=== PATIENT | male | born 1970 | race Caucasian/White ===

== ENCOUNTER → 2016-05-17 | Outpatient (CLI) | payer BC ==
[~2016-05-17] MED LIST: ALL DAY ALLERGY10 M3 PO; COATED ASPIRIN325 M1 PO; FLEXERIL PO; NAPROXEN PO; PRAVASTATIN SOD40 MG PO
--- NOTE | ~2016-05-17 | EKG ---
PATIENT: YENI KIRKLAND UNIT #: [id number] Ventricular Rate: 79 BPM Atrial Rate: 79 BPM P-R Interval: 162 ms QRS Duration: 72 ms Q-T Interval: 376 ms QTC Calculation(Bezet): 431 ms P [place]: 50 degrees Calculated R [place]: 9 degrees Calculated T [place]: 9 degrees Diagnosis Line: Normal sinus rhythm Diagnosis Line: Baseline wander Normal ECG Diagnosis Line: When compared with ECG of 21-JAN-2016 11:15, Diagnosis Line: Premature ventricular complexes are no longer Diagnosis Line: Present Diagnosis Line: Confirmed by PACO ARROYO MD ([id number]) on 05/18/2016 Diagnosis Line: 6:18:08 PM INTERPRETING MD: DINA MARCUS
[2016-05-17 10:16] LABS: BASOPHIL# 0.1 X10e3 (0-0.3); BASOPHIL% 0.9 % (0-2.5); EOSINOPHIL# 0.4 X10e3 (0-0.7); EOSINOPHIL% 6.5 % (0.0-7.0); HEMATOCRIT 46.3 % (38.0-50.0); HEMOGLOBIN 15.8 gm/dL (13.0-16.0); LYMPHOCYTE% 33.4 % (17.0-45.0); MEAN CELL VOLUME 86.6 FL (83-96); MEAN CORPUSCULAR HEMOGLOBIN 29.5 PG (28-34); MEAN CORPUSCULAR HGB CONC 34.1 g/dL (30-36); MEAN PLATELET VOLUME 7.2 FL (6.5-11.5); MONOCYTE# 0.7 X10e3 (0-1.0); MONOCYTE% 11.2 % (3.0-12.0); NEUTROPHIL# 2.9 X10e3 (1.5-7.1); PLATELET COUNT 196 X10e3 (140-420); RED BLOOD COUNT 5.35 X10e (3.90-5.60); RED CELL DISTRIBUTION WIDTH 13.1 % (11.0-15.5); WHITE BLOOD COUNT 5.9 X10e3 (4.0-10.5)
[2016-05-17 10:19] LABS: DIFF IND NO
[2016-05-17 10:50] LABS: BLOOD UREA NITROGEN 13 mg/dL (9-23); CALCIUM SERUM 9.4 mg/dL (8.4-10.2); CARBON DIOXIDE 23 mmol/L (22-31); CHLORIDE 106 mmol/L (100-111); GLOM FILT RATE Estimated ABOVE60 mL/min (>60); GLUCOSE FASTING 95 mg/dL (70-110); POTASSIUM 4.1 mmol/L (3.5-5.1); SODIUM 138 mmol/L (135-145)
[2016-05-17 10:55] LABS: THYROID STIMULATING HORMONE 1.2 uIU/ml (0.34-5.60)
[2016-05-17 11:01] LABS: FREE THYROXIN (T4) 0.85 ng/dL (0.58-1.64)
[2016-05-24 16:37] LABS: CALCIUM (PTHINTACT) 9.4 mg/dL (8.6-10.3)
== END | disposition home or self-care (01) ==
LOC: CLAB 08:59
PROVIDERS: Specialist
DX: Z01.818 Encounter for other preprocedural examination (principal); E04.1 Nontoxic single thyroid nodule
CPT/HCPCS: 36415; 80048; 82306; 82310; 83970; 84439; 84443; 84481; 85025; 93005

== ENCOUNTER → 2016-06-14 | Outpatient (CLI) | payer BC ==
[2016-06-14 15:22] LABS: THYROID STIMULATING HORMONE 4.19 uIU/ml (0.34-5.60)
[2016-06-14 15:27] LABS: FREE T3 3.5 pg/mL (2.5-3.9)
[2016-06-14 15:28] LABS: FREE THYROXIN (T4) 0.61 ng/dL (0.58-1.64)
== END | disposition home or self-care (01) ==
LOC: CLAB 14:22
PROVIDERS: Specialist
DX: E04.1 Nontoxic single thyroid nodule (principal)
CPT/HCPCS: 36415; 84439; 84443; 84481